=== PATIENT | female | born 1975 | race Caucasian/White ===

== ENCOUNTER 2019-07-16 08:54 | Emergency (ER) | payer BC ==
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
== END 2019-07-16 10:04 | disposition home or self-care (01) ==
LOC: ER 08:54
DX: S50.02XA Contusion of left elbow, initial encounter (principal); S40.811A Abrasion of right upper arm, initial encounter; S50.311A Abrasion of right elbow, initial encounter; H57.11 Ocular pain, right eye; V40.5XXA Car driver injured in collision with pedestrian or animal in traffic accident, initial encounter; I10 Essential (primary) hypertension
CPT/HCPCS: 99284